=== PATIENT | female | born 1945 | race African-American/Black ===

== ENCOUNTER 2024-10-29 13:08 | Outpatient (AMB) | payer MEDICARE, SELFPAY ==
--- NOTE | 2024-10-29 13:29 | MHC.OFFVIS ---
Intake Visit Reasons: fu for results Allergies No Known Allergies Allergy (Verified 09/18/24 19:30) HPI Comments Details: 79 yo woman with IDDM and obeisty is here for left foot pain. IT was happening for about a year and it was getting worse. It was mostly noted at night when it became very painful and affected her sleep. Pain was on the front of foot close to ankle on the lateral side, not in toes. IT was sharp and shooting type. [facility] Medical History (Updated 10/29/24 @ 13:44 by Berna Tellez MD) Hypertension Diabetes mellitus Diabetic neuropathy Tarsal tunnel syndrome of left side Review of Systems Const Details: Difficuly walking and foot pain Physical Exam Neuro Other: Mental Status: Alert and oriented to person, place, and time. Normal attention. Normal spontaneous speech, fluency, and comprehension. No obvious issues with mood and memory. Affect is appropriate. Cranial Nerves: CN II: Visual kaiser full to confrontation, visual acuity intact. CN III, IV, : Pupils equal, round, reactive to light and accommodation. Extraocular movements are normal. CN V: Facial sensation is normal. CN VII: Facial movements symmetrical. CN VIII: Hearing intact to bedside conversation is normal. CN IX, X: Palate elevates symmetrically. CN XI: Shoulder shrug and head turn symmetrical. CN XII: Tongue midline without atrophy or fasciculations. Extrapyramidal: Full facial expressions and blinking. No rigidity. Movements are appropriate with no tremor or abnormality. Speech: Normal; no dysarthria or tremor. Assessment & Plan Assessment & Plan (1) Tarsal tunnel syndrome: Code(s): G57.50 - Tarsal tunnel syndrome, unspecified lower limb Category: Medical Qualifiers: Laterality: bilateral Qualified Code(s): G57.53 - Tarsal tunnel syndrome, bilateral lower limbs (2) Diabetic neuropathy: Comment: EMG/NCS LEs at off in August 2024: Mod to severe axonal SM PN Code(s): E11.40 - Type 2 diabetes mellitus with diabetic neuropathy, unspecified Category: Medical Qualifiers: Diabetes mellitus type: type 2 Diabetes mellitus complication detail: diabetic polyneuropathy Qualified Code(s): E11.42 - Type 2 diabetes mellitus with diabetic polyneuropathy (3) Flat foot: Code(s): M21.40 - Flat foot [pes planus] (acquired), unspecified foot Category: Medical Qualifiers: Laterality: bilateral Qualified Code(s): M21.41 - Flat foot [pes planus] (acquired), right foot; M21.42 - Flat foot [pes planus] (acquired), left foot Plan Impression: a: 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 Stationary bike or water therapy can help. b: Comfortable shoes with proper shoe inserts c: Try to lose weight d: Good diabetic control e: Gabapentin 300mg one at bedtime f: Use a walker or at least a cane g: Common sense precautions at home to avoid falling Medications: New gabapentin 300 mg PO BEDTIME 90 caps 1RF Coding Level of Care Code Est Pt Level 4 (06588) Diagnoses Tarsal tunnel syndrome of both lower extremities G57.53 Laterality: bilateral Diabetic polyneuropathy associated with type 2 diabetes mellitus E11.42 Diabetes mellitus type: type 2 Diabetes mellitus complication detail: diabetic polyneuropathy Pes planus of both feet M21.41; M21.42 Laterality: bilateral
--- OUTSIDE RECORDS SUMMARY | 2024-10-29 13:59 | XMS_ITS | Clinical Summary ---
Author Organization [facility]. Address [address] [place] [phone] Phone Care Team Providers Care Bee Rancher Name Role Phone Pat Lundberg PA-C Primary Care Provider + Allergies No known active allergies Medications albuterol HFA (PROVENTIL HFA;VENTOLIN HFA) 108 (90 Base) MCG/ACT inhaler Inhale 2 puffs 0 Active glucose monitoring kit (FREESTYLE) monitoring kit Dx: E11.9 0 Active Cholecalciferol 50 MCG (2000 UT) capsule Take 2,000 Units by mouth 8 Active metoprolol tartrate (LOPRESSOR) 100 MG tablet Take 1 tablet by mouth 2 (two) times a day 0 Active traMADol (ULTRAM) 50 MG tablet Take 1 tablet by mouth 2 (two) times a day 1 Active mupirocin (BACTROBAN) 2 % ointment APPLY TO LEFT HEEL SORE TWICE DAILY DIRECTED 1 Active Insulin Lispro, 1 Unit Dial, (HumaLOG KWIKPEN) 100 UNIT/ML solution pen-injector Used tid via sliding scale prior to meals 3 Active torsemide (DEMADEX) 10 MG tablet Take 1 tablet (10 mg total) by mouth 1 (one) time each day 90 tablet 3 3 Active amLODIPine (NORVASC) 10 MG tabletIndicatio ns:Hypertension Take 1 tablet (10 mg total) by mouth 1 (one) time each day 30 tablet 11 4 Active Lantus SoloStar 100 UNIT/ML injection ADMINISTER 30 UNITS in the morning and 30 units at bedtime 4 Active allopurinol (ZYLOPRIM) 100 MG tablet Take 1 tablet (100 mg total) by mouth 1 (one) time each day 90 tablet 3 4 03/18/20 25 Active spironolactone (ALDACTONE) 100 MG tablet Take 1 tablet (100 mg total) by mouth 1 (one) time each day 30 tablet 5 5 01/21/20 25 Active Blood Pressure Monitoring (Omron 3 Series BP Monitor) deviceIndicatio ns:Stage 3b chronic kidney disease (HCC),Hypertens ion 1 Device 1 (one) time each day 1 each 5 Active losartan (Cozaar) 25 MG tabletIndicatio ns:Proteinuria, not otherwise specified,Hyper tension,Stage 3b chronic kidney disease (HCC) Take 1 tablet (25 mg total) by mouth 1 (one) time each day 30 tablet 11 5 10/25/19 26 Active cephalexin (KEFLEX) 500 MG capsuleIndicati ons:Acute cystitis without hematuria, not otherwise specified Take 1 capsule (500 mg total) by mouth in the morning and 1 capsule (500 mg total) in the evening and 1 capsule (500 mg total) before bedtime. Do all this for 7 days. 21 capsule 5 10/02/19 25 Active Problems Problem Noted Date Diagnosed Date Right flank pain 09/18/2024 Bilateral lower leg edema 07/24/2024 Acute cystitis without hematuria, not otherwise specified 10/27/2023 Assessment & Plan (10/27/2023 12:28 AM EDT): Started on Cephelexin 500 mg TID x7 days for positive UTI Increase water intake Hypoglycemia, not otherwise specified 08/29/2023 Assessment & Plan (08/29/2023 3:13 PM EDT): Discontinued Glipizide XL 5 mg QD d/t low BS 40s and 50s at home and on recent lab and due to rising Creat to 2.8 from 2.0 in 05/2023 and 1.3 six months ago Continue current insulin regimen Monitor Blood sugar at home as you have been doing Follow-up with PCP/Endocrinology for Diabetes Management Proteinuria, not otherwise specified 06/30/2023 Assessment & Plan (10/27/2023 12:27 AM EDT): Urine microalb/creat ratio 269 as of 10/24/23, improved from 300s in 01/2023 TRA on hold Will cont to monitor Assessment & Plan (06/30/2023 2:47 AM EDT): Monitor urine alb/creat ratio q 6 mos Last urine alb/creat ratio 348 as of 01/2023, which was unchanged for the past year On ACEi which we're decreasing due to bump up in Creat to 2.0 Stage 3b chronic kidney disease 06/30/2023 Assessment & Plan (01/24/2024 5:02 PM EST): AKA resolved s/p pacemaker placement hospitalization in Nov-Dec 2023 Most recent Creat 1.59, GFR 33 on 11/24/23, which is baseline Off Lisinopril Assessment & Plan (08/29/2023 3:07 PM EDT): Worsening Creat 2.8 as of 08/25/2023 Stop Lisinopril 20 mg QD for now Discontinue Glipizide due to hypoglycemia with renal risk Recheck Renal panel in 1 week Assessment & Plan (06/30/2023 2:38 AM EDT): Creat bumped up to 2.0, eGFR 25 compared to Creat 1.3 in 01/2023 and Creat 1.7 a year ago Normal Lytes Taking Lisinopril 40 mg QD - Decrease to 20 mg QD Recheck Renal panel in 2 weeks Chronic low back pain 11/18/2020 Chronic obstructive pulmonary disease 11/18/2020 Edema 07/24/2020 Increased frequency of urination 07/24/2020 Primary gonarthrosis, 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 Body mass index 40+ - severely obese 02/22/2018 Osteoarthritis 02/22/2018 Overview (07/24/2020): Lumbar Spine, Hips, Knees Lumbar Spine, Hips, Knees Calcium pyrophosphate deposition disease 018 Hyperlipidemia 12/15/2017 Hypertension 12/15/2017 Assessment & Plan (01/24/2024 4:57 PM EST): Blood pressure is well controlled On Amlodipine 10 mg QD, Metoprolol 100 mg BID, Spironolactone 50 mg QD and Torsemide 10 mg QD Edema present bilat feet/LLE Assessment & Plan (10/27/2023 12:23 AM EDT): Blood pressure is adequate On Amlodipine 10 mg QD, Spironolactone 25 mg QD and Metoprolol 100 mg BID Continue to hold Lisinopril Repeat Renal panel pending Trace Edema No med changes made Assessment & Plan (08/29/2023 3:10 PM EDT): Blood pressure well controlled Taking Lisinopril 20 mg QD, Amlodipine 5 mg QD, Spironolactone 25 mg QD, Metoprolol 100 mg BID, Torsemide 10 mg QD Trace Edema L > R LE Stop Lisinopril d/t rising Creat level Increase Amlodipine to 10 mg QD Monitor Blood pressure at home, bring in readings to next visit Assessment & Plan (06/30/2023 2:43 AM EDT): Blood pressure optimally controlled, maybe too good for the patient considering a rise in Creat level Cut back on Lisinopril from 40 mg to 20 mg QD Continue taking Amlodipine 5 mg QD, Metoprolol 100 mg BID and Spironolactone 50 mg QD Monitor BP at home and bring readings in to visits if possible for review Type 2 diabetes mellitus 12/15/2017 Vitamin D deficiency 12/15/2017 Assessment & Plan (08/29/2023 3:05 PM EDT): On Vit D 1000U supplementation daily Checking Vitamin D 25 level Anemia 08/29/2017 Assessment & Plan (01/24/2024 4:53 PM EST): Hgb within target Normal iron studies Not on iron supplement Will monitor need for Epo replacement once Hgb falls <10 Assessment & Plan (10/27/2023 12:19 AM EDT): Hgb within target at 11.1 as of 10/24/23 Normal iron studies, not on supp Will monitor need for Epo replacement once Hgb falls <10 Assessment & Plan (06/30/2023 2:51 AM EDT): Hgb 10.8 as of 06/08/23, improved from 9.8 in 01/2023 Iron studies WNL as of 01/2023 Will consider Epo replacement should Hgb fall below 10 again despite adequate iron studies Microalbuminuria 07/19/2016 Assessment & Plan (01/24/2024 5:05 PM EST): Non-nephrotic range Urine alb/creat ratio 269 as of 10/24/23, stable Will monitor Off Lisinopril d/t MALLORY Unable to tolerate Farxiga Consider re-introducing TRA/ARB if this worsens Esophageal reflux 06/23/2015 Allergic rhinitis 03/27/2014 Diverticular disease 06/29/2012 Internal hemorrhoids 06/29/2012 Resolved Problems Problem Noted Date Diagnosed Date Resolved Date Chronic kidney disease 12/15/201706/29 Encounters Date Type Department Care Team Description 10/24/2024 Office Communication [facility] [address] [phone] Estella Lino ARNP 10/24/2024 Orders Only [facility] [address] [phone] Estella Lino ARNP Proteinuria, not otherwise specified (Primary Dx); Hypertension; Stage 3b chronic kidney disease (HCC) 09/24/2024 Orders Only [facility] [address] [phone] Estella Lino ARNP Acute cystitis without hematuria, not otherwise specified (Primary Dx) 09/23/2024 Office Communication [facility] [address] [phone] James Canseco 09/18/2024 2:15 PM EDT Office Visit [facility] [address] [phone] Estella Lino ARNP Stage 3b chronic kidney disease (HCC) (Primary Dx); Hypertension; Right flank pain; Anemia in chronic kidney disease; Proteinuria, not otherwise specified 09/18/2024 Refill [facility] [address] [phone] Allison Heller MA Stage 3b chronic kidney disease (HCC); Hypertension from Last 3 Months Immunizations Immunization Administration Dates Next Due Influenza (IM) Preservative Free 01/21/2016,12/19 Influenza Split High Dose Pr eservative Free IM 04/22/2021,12/23/2019,12/11/2018 Moderna SARS-COV-2 04/14/2021,07/18/2020, 021 PPD Test 10/22/2014 Pneumococcal Conjugate 13-Valent 01/21/2016 Pneumococcal Polysaccharide 09/11/2014 Tdap 12/11/2018 Family History Medical History Relation Comments Hypertension Child 1 Diabetes Child 2 Cancer Mother breast Relation Status Comments Child 1 Child 2 Father Mother Social History Tobacco Use Types Packs/Day Years Used Date Smoking Tobacco: Never Smokeless Tobacco: Never Tobacco Cessation:Counseling Given: No Alcohol Use Standard Drinks/Week Comments Yes 0 (1 standard drink = 0.6 oz pure alcohol) Alcoholic Drinks/day: Occasional social drink Comments Unknown Sex and Gender Information Value Date Recorded Sex Assigned at Not on file Legal Sex Female 4:49 PM EST Gender Identity Not on file Sexual Orientation Not on file Last Filed Vital Signs Vital Sign Reading Time Taken Comments Blood Pressure 140/80 09/18/2024 2:54 PM EDT Pulse 100 09/18/2024 2:34 PM EDT Temperature - - Respiratory Rate - - Oxygen Saturation 96% 09/18/2024 2:34 PM EDT Inhaled Oxygen Concentration - - Weight 104 kg (228 lb 9.6 oz) 09/18/2024 2:34 PM EDT Height 160 cm (5' 3 ) 02/03/2022 2:35 PM EST Body Mass Index 40.49 02/03/2022 2:35 PM EST Plan of Treatment Upcoming Encounters Date Type Department Care Team (Late st Contact Info) Description 02/19/2025 2:00 PM EST Office Visit [facility] [address] [phone] LinoEstellaJAYLEN [address] [phone] Health Maintenance Due Date Last Done Comments Diabetes: Ophthalmology Exam 04/17/2020 Diabetes: Pedal Pulse Checked 04/17/2020 Diabetes: Sensory Foot Exam 04/17/2020 Diabetes: Visual Foot Exam 04/17/2020 Diabetes: Hemoglobin A1C 10/24/2024 025, 01/11/2024, 04/12/2023, Additional history exists Influenza Vaccine (#1) 2024 5, 04/22/2021, 12/23/2019, Additional history exists Pneumococcal Vaccine: 50+ Years Completed 01/21/2016, 09/11/2014 Pneumococcal Vaccine: Peds (0 to 5 Years) and At-Risk Patients (6 to 49 Years) Discontinued 01/21/2016, 09/11/2014 Hepatitis B Vaccine Aged Out No longe r eligible based on patient's age to complete this topic Procedures Procedure Name Priority Date/Time Associated Diagnosis Comments PTH, INTACT Routine 10/17/2024 3:10 PM EDT FERRITIN Routine 10/17/2024 3:10 PM EDT MAGNESIUM Routine 10/17/2024 3:10 PM EDT VITAMIN D 25 HYDROXY Routine 10/17/2024 3:10 PM EDT URINE ALBUMIN / CREATININE RATIO Routine 10/17/2024 3:10 PM EDT PROTEIN / CREATININE RATIO, URINE Routine 10/17/2024 3:10 PM EDT IRON PANEL (FE, TIBC, TSAT) Routine 10/17/2024 3:10 PM EDT CBC Routine 10/17/2024 3:10 PM EDT RENAL FUNCTION PANEL Routine 10/17/2024 3:10 PM EDT URINE CULTURE Routine 09/18/2024 3:22 PM EDT Stage 3b chronic kidney disease (HCC) Hypertension Right flank pain URINALYSIS WITH MICROSCOPIC Routine 09/18/2024 3:22 PM EDT Stage 3b chronic kidney disease (HCC) Hypertension Right flank pain BASIC METABOLIC PANEL Routine 09/18/2024 3:22 PM EDT Stage 3b chronic kidney disease (HCC) Hypertension Right flank pain RESULT Routine 09/18/2024 3:22 PM EDT MICROSCOPIC EXAMINATION - DO NOT USE Routine 09/18/2024 3:22 PM EDT HEMOGLOBIN A1C Routine 02/03/2022 3:06 PM EST Chronic kidney disease, stage 2 (mild) Edema, not otherwise specified Other iron deficiency anemia Type 2 diabetes mellitus with diabetic nephropathy (HCC) from Last 3 Months or Most Recently Relevant to Health Maintenance Results * Iron Panel (Fe, TIBC, TSAT) (10/17/2024 3:10 PM EDT) TIBC 322 250 - 450 ug/dL [facility] UIBC 238 118 - 369 ug/dL [facility] Iron 84 27 - 139 ug/dL [facility] Iron Saturation (TSat) 26 15 - 55 % [facility] 10/17/2024 3:10 PM EDT 10/17/2024 [facility] LAB BLOOD ORDERABLES Final Result Performing Organization Address City/[facility]/ZIP Co de Phone Number [facility] [employer] [facility] [place] [address] [place] [address] * (ABNORMAL) Protein, Total, Random Urine w/Creatinine (Protein/Creat Ratio) (10/17/2024 3:10 PM EDT) Creatinine, Ur 55.0 Not Estab. mg/dL [facility] Protein, Ur 112.7 Not Estab. mg/dL [facility] Urine Protein/Creati nine Ratio 2,049(H) 0 - 200 mg/g creat [facility] 10/17/2024 3:10 PM EDT 10/17/[address] [facility] LAB URINE ORDERABLES Final Result Performing Organization Address [facility] Co de Phone Number [employer] [facility] [place] [address] [place] [address] * (ABNORMAL) Urine Albumin / Creatinine Ratio (10/17/2024 3:10 PM EDT) Albumin, Urine 709.8 Not Estab. ug/mL [facility] Comment: Results confirmed on dilution. Albumin/Creatin ine Ratio 1,291(H) 0 - 29 mg/g creat [facility] Comment: Normal: 0 - 29 Moderately increased: 30 - 300 Severely increased: >300 10/17/2024 3:10 PM EDT 10/17/[address] [facility] LAB URINE ORDERABLES Final Result Performing Organization Address City/[facility]/ZIP Co de Phone Number [employer] [facility] [place] [address] [place] [address] * Vitamin D 25 Hydroxy (10/17/2024 3:10 PM EDT) Vitamin D, 25-OH, Total 38.4 30.0 - 100.0 ng/mL [facility] Comment: Vitamin D deficiency has been defined by the [place] of Medicine and an Endocrine Society practice guideline as a level of serum 25-OH vitamin D less than 20 ng/mL (1,2). The Endocrine Society went on to further define vitamin D insufficiency as a level between 21 and 29 ng/mL (2). 1. IOM ([place] of Medicine). 2010. Dietary reference intakes for calcium and D. [place]: The National Academies Press. 2. Ayad MF, Bubba BUTCHER, Vance ALCARAZ, et al. Evaluation, treatment, and prevention of vitamin D deficiency: an Endocrine Society clinical practice guideline. JCEM. 2010; 96(7):1911-30. 10/17/2024 3:10 PM EDT 10/17/2024 Estella Lino [facility] LAB BLOOD ORDERABLES Final Result [facility] [address] [place] [address] * CBC (10/17/2024 3:10 PM EDT) WBC 8.7 3.4 - 10.8 x10E3/uL [facility] RBC 3.94 3.77 - 5.28 x10E6/uL [facility] Hemoglobin 12.5 11.1 - 15.9 g/dL [facility] Hematocrit 37.2 34.0 - 46.6 % [facility] MCV 94 79 - 97 fL [facility] MCH 31.7 26.6 - 33.0 pg [facility] MCHC 33.6 31.5 - 35.7 g/dL [facility] RDW 12.9 11.7 - 15.4 % [facility] Platelets 302 150 - 450 x10E3/uL [facility] 10/17/2024 3:10 PM EDT 10/17/2024 [facility] LAB BLOOD ORDERABLES Final Result [facility] [address] [place] [address] * PTH, Intact (10/17/2024 3:10 PM EDT) PTH 27 15 - 65 pg/mL [facility] 10/17/2024 3:10 PM EDT 10/17/2024 [facility] LAB BLOOD ORDERABLES Final Result Performing Organization Address City/[facility]/ZIP Co de Phone Number [facility] [place] [address] [place] [address] * Magnesium (10/17/2024 3:10 PM EDT) Magnesium 1.9 1.6 - 2.3 mg/dL [facility] 10/17/2024 3:10 PM EDT 10/17/2024 [facility] LAB BLOOD ORDERABLES Final Result Performing Organization Address City/[facility]/ZIP Co de Phone Number [facility] [address] [place] [address] * (ABNORMAL) Ferritin (10/17/2024 3:10 PM EDT) Ferritin 318(H) 15 - 150 ng/mL [facility] 10/17/2024 3:10 PM EDT 10/17/2024 [facility] LAB BLOOD ORDERABLES Final Result [facility] [address] [place] [address] * (ABNORMAL) Renal Function Panel (10/17/2024 3:10 PM EDT) Pathologist [facility] Glucose 79 70 - 99 mg/dL [facility] BUN 35(H) 8 - 27 mg/dL [facility] Creatinine 1.70(H) 0.57 - 1.00 mg/dL [facility] eGFR CKD-EPI CR 2020 31(L) >59 mL/min/1.7 3 [facility] BUN/Creatinine Ratio 21 12 - 28 [facility] Sodium 139 134 - 144 mmol/L [facility] Potassium 4.9 3.5 - 5.2 mmol/L [facility] Chloride 98 96 - 106 mmol/L [facility] Bicarbonate (CO2) 21 20 - 29 mmol/L [facility] Calcium 9.9 8.7 - 10.3 mg/dL [facility] Phosphorus 3.9 3.0 - 4.3 mg/dL [facility] Albumin 4.1 3.8 - 4.8 g/dL [facility] 10/17/2024 3:10 PM EDT 10/17/2024 [facility] LAB BLOOD ORDERABLES Final Result Performing Organization Address City/[facility]/ZIP Co de Phone Number [employer] [address] [place] [address] * (ABNORMAL) Result (09/18/2024 3:22 PM EDT) Result Escherichia coli(A) [facility] Comment: Cefazolin with an CARON <=16 predicts susceptibility to the oral agents cefaclor, cefdinir, cefpodoxime, cefprozil, cefuroxime, cephalexin, and loracarbef when used for therapy of uncomplicated urinary tract infections due to E. coli, Klebsiella pneumoniae, and Proteus mirabilis. Greater than 100,000 colony forming units per mL ANTIMICROBIAL SUSCEPTIBILITY Comment [facility] Comment: S = Susceptible; I = Intermediate; R = Resistant P = Positive; N = Negative MICS are expressed in micrograms per mL Antibiotic RSLT#1 RSLT#2 RSLT#3 RSLT#4 Amoxicillin/Clavulanic Acid S Ampicillin S Cefazolin S Cefepime S Cefoxitin S Cefpodoxime S Ceftriaxone S Ciprofloxacin S Ertapenem S Gentamicin S Levofloxacin S Meropenem S Nitrofurantoin S Piperacillin/Tazobactam S Tetracycline S Tobramycin S Trimethoprim/Sulfa S 09/18/2024 3:22 PM EDT 09/18/2024 Estella Lino [facility] LAB MICROBIOLOGY - GENERAL ORDERABLES Final Result [employer] [address], [address] [place] [address] * (ABNORMAL) Microscopic Examination (09/18/2024 3:22 PM EDT) WBC, Urine 11-30(A) 0 - 5 /hpf [facility] RBC, Urine None seen 0 - 2 /hpf [facility] [place] Squamous Epithelial, Urine 0-10 0 - 10 /hpf [facility] Casts None seen None seen /lpf [facility] Bacteria, Urine Many(A) None seen/Few [facility] 09/18/2024 3:22 PM EDT 09/18/2024 Estella Holland [facility] LAB MICROBIOLOGY - GENERAL ORDERABLES Final Result [facility] [address] [place] [address] * (ABNORMAL) Urinalysis with microscopic (09/18/2024 3:22 PM EDT) Specific [place], Urine 1.012 1.005 - 1.030 [facility] [phone] pH Urine 6.0 5.0 - 7.5 [facility] [phone] Color, Urine Yellow Yellow [facility] Appearance Urine Cloudy(A) Clear [facility] [place] WBC Esterase Urine Trace(A) Negative [facility] Protein, Ur 2+(A) Negative/Tr tra [facility] Glucose, Ur Negative Negative [facility] [phone] Ketones, Urine Negative Negative [facility] [place] Blood Urine Negative Negative [facility] Bilirubin Urine Negative Negative [facility] [place] [phone] Urobilinogen Urine 0.2 0.2 - 1.0 mg/dL [facility] Nitrite, Urine Positive(A) Negative [facility] [place] Microscopic Examination See below: [facility] Comment:Microscopic was yanelis cated and was performed. Urine Urine specimen obtained by clean catch procedure / Unknown 09/18/2024 3:22 PM EDT 09/18/2024 Estella Lino [facility] LAB URINE ORDERABLES Final Result [facility] [address] [place] [address] * (ABNORMAL) Urine culture (09/18/2024 3:22 PM EDT) Culture Result, Urine Final report(A) [facility] Urine Urine specimen obtained by clean catch procedure / Unknown 09/18/2024 3:22 PM EDT 09/18/2024 Comment: Estella Lino [facility] LAB URINE ORDERABLES Final Result [facility] [address], [address] [place] [address] * (ABNORMAL) Basic metabolic panel (09/18/2024 3:22 PM EDT) Glucose 56(L) 70 - 99 mg/dL [facility] BUN 35(H) 8 - 27 mg/dL [facility] Creatinine 1.63(H) 0.57 - 1.00 mg/dL [facility] eGFR CKD-EPI CR 2020 32(L) >59 mL/min/1.7 3 [facility] BUN/Creatinine Ratio 21 12 - 28 [facility] Sodium 138 134 - 144 mmol/L [facility] Potassium 4.5 3.5 - 5.2 mmol/L [facility] Chloride 97 96 - 106 mmol/L [facility] Bicarbonate (CO2) 22 20 - 29 mmol/L [facility] Calcium 10.0 8.7 - 10.3 mg/dL [facility] Blood Venous blood / Unknown 09/18/2024 3:22 PM EDT 09/18/2024 [facility] LAB BLOOD ORDERABLES Final Result Performing Organization Address [facility] Co de Phone Number [facility] [address] [place] [address] * (ABNORMAL) Hemoglobin A1c (02/03/2022 3:06 PM EST) Hemoglobin A1C 7.9(H) (4.0-5.6) % [facility] Comment: MONITORING: In known diabetic patients, hemoglobin A1c targets should be discussed with health care provider. DIAGNOSTIC USE: The [place] Diabetes Association (ADA) and the World Health Organization (WHO) recommend the use of HbA1c to diagnose diabetes using a threshold of 6.5%. Patients who have an HbA1c between 5.7% and 6.4% are considered at increased risk for developing diabetes in the future. CAUTION: Falsely low HbA1c results may be observed in patients with hemolytic anemia, homozygous forms of abnormal hemoglobin (e.g. SS, CC, SC), , recent blood loss or hemoglobin F greater than 7%. Fructosamine may be used as an alternate test in these cases. REFERENCE: ADA: Standards of Medical Care in Diabetes 2020, The Journal of Clinical and Applied Research and Education Volume 43, Supplement 1 Testing performed or reported by [facility], a Service of [facility], [address] [place] [id number] Cathleen Chung MD, [employer] [facility]# [id number] Blood specimen (specimen) Venous blood / Unknown 02/03/2022 3:06 PM EST 02/03/2022 3:08 PM EST Josué Russ MD LAB BLOOD ORDERABLES Final Re sult Performing Organization Address City/[facility]/ZIP Co de Phone Number [facility] from Last 3 Months or Most Recently Relevant to Health Maintenance Insurance [place] [address] [place] [address] Medicare Care Teams Bee Rancher Relationship Specialty Start Date End Date Pat Lundberg PA-C [facility] [place], [place] PCP - General Physician Oxygen Tank Filler 07/27/20
--- OUTSIDE RECORDS SUMMARY | 2024-10-29 13:59 | XMS_ITS ---
Author Name [facility] Organization Unknown Care Team Organization Name Specialty Phone Email Start Date End Da te [facility] Pat Lundberg Primary Care 01/25/2022 11/06/2023
--- OUTSIDE RECORDS SUMMARY | 2024-10-29 13:59 | XMS_ITS | Encounter Summary ---
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 Name Role Phone Pat Lundberg Primary Care Provider + Reason for Visit * Reason Onset Date Comments Medication Problem 10/28/2024 Encounter Details Date Type Department Care Team (Late st Contact Info) Description 10/28/2024 Telephone Internal Medicine - [place] [address] [facility] [address] [place] [id number] Pat Lundberg PA [address] [facility] [address] [place] [address] Medication Problem Social History Tobacco Use Types Packs/Day Years Used Date Smoking Tobacco: Never Smokeless Tobacco: Never Alcohol Use Standard Drinks/Week Comments Yes 0 (1 standard drink = 0.6 oz pur e alcohol) Comments Unknown Sex and Gender Information Value Date Recorded Sex Assigned at Not on file Legal Sex Female 9:29 AM EST Gender Identity Not on file Sexual Orientation Not on file documented as of this encounter Progress Notes * LEIDY Chaney - 10/28/2024 3:51 PM EDT She is not on losartan per my records. * Sobeida Ayala MA - 10/28/2024 3:04 PM EDT Pharmacy informed pts grandchild losartan 20mg and amlodapine 10mg have a drug interaction. 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 Please advise Cb# [phone] documented in this encounter Plan of Treatment Upcoming Encounters Date Type Department Care Team (Late st Contact Info) Description 12/10/2024 10:30 AM EDT Ancillary Procedure [facility] - [facility] [address] [facility] [address] [place] [address] 01/14/2025 2:15 PM EDT Office Visit Internal Medicine - [place] [address] [facility] [address] [place] [address] aPt Lundberg PA [address] [facility] [address] [place] [address] documented as of this encounter Visit Diagnoses Not on filedocumented in this encounter Care Teams Sewer Bricklayer Relationship Specialty Start Date End Date Pat Lundberg PA [address] [place] [address] PCP - General Primary Care 02/28/24 documented as of this encounter
--- OUTSIDE RECORDS SUMMARY | 2024-10-29 13:59 | XMS_ITS | Patient Health Record ---
Author Organization [facility] Address [address] [facility] [place] [address] Care Team Providers Care Warp Yarn Sorter Name Role Phone Conrad Alexander MA Primary Care Provider Adelina Martinez Unavailable [phone] Reason For Referral No Information Medications Medication SIG (Take, Route, Frequency, Duration) Notes Start Date End Date Status Vitamin D3 1000 UNIT 1 capsule Orally On ce a day Active Red Yeast Rice 600 MG Orally Active Vitamin E 400 UNIT 1 capsule Orally Onc e a day Active Lisinopril 40 MG Oral; Duration: 90 Active metFORMIN HCl 1000 MG Oral; Duration: 90 Active Extra-Depth Diabetic Shoes with 3 Pair Custom heat-molded multi-density innersoles . for 1 year . Dx:NIDDM, Hammer toe, Pes Planus; Duration: . 01/21/2015 Active Levemir FlexTouch 100 UNIT/ML INJECT 30 UNITS AT BEDTIME Subcutaneous; Duration: 45 Activ e Iron Supplement Acti ve Aspirin 81 MG 1 tablet Orally Once a day Active Naproxen 500 MG Oral; Duration: 30 Active Metoprolol-hydroCHLOROthia zide 100-25 MG Oral; Duration: 30 Active Problems Problem Type SNOMED Code ICD Code Onset Dates Problem Status W/U Status Risk Notes Problem Type II diabetes mellitus without complication (456586330) Type 2 diabetes mellitus without complications (E11.9) Active confirmed Problem Pes planus (15415583) Pes planus of right foot (M21.41) Active confirmed Problem Pes planus (97878108) Pes planus of left foot (M21.42) Active confirmed Problem Acquired hammer toe of right foot (357853977294249 5) Hammer toe of right foot (M20.41) Active confirmed Problem Acquired hammer toe of left foot ([id number] 3) Hammer toe of left foot (M20.42) Active confirmed Plan Of Treatment No Information Insurance Providers Payer Name Payer Address Payer Phone Subscriber Number Group Number Insured Name Patient Relationship to Insured Coverage Start Date Coverage End Date [employer] [address] [place] [address] [phone] [id number] SCOTT KERN Self - patient is the insured [address] [place] [address] [address] [place] [address] [id number] SCOTT KERN Self - patient is the insured Medical (General) History Medical History History ICD Code Alzheimers disease Diabetic High blood pressure Mumps Measles Chicken pox
== END 2024-10-29 13:54 | disposition home or self-care (01) ==
PROVIDERS: PCP Physician Assistant; Visit Provider Psychiatry & Neurology Neurology
DX: G57.53 Tarsal tunnel syndrome, bilateral lower limbs (principal); E11.42 Type 2 diabetes mellitus with diabetic polyneuropathy; M21.41 Flat foot [pes planus] (acquired), right foot; M21.42 Flat foot [pes planus] (acquired), left foot
CPT/HCPCS: 99214

== ENCOUNTER → 2024-10-29 13:08 | Outpatient (BNVA) | payer MEDICARE, SELFPAY | PROVIDERS: PCP Physician Assistant; Visit Provider Psychiatry & Neurology Neurology | DX: G57.53 Tarsal tunnel syndrome, bilateral lower limbs (principal); E11.42 Type 2 diabetes mellitus with diabetic polyneuropathy; M21.41 Flat foot [pes planus] (acquired), right foot; M21.42 Flat foot [pes planus] (acquired), left foot | CPT/HCPCS: 99212 ==